=== PATIENT | male | born 1955 | race Caucasian/White ===

== ENCOUNTER 2019-01-16 21:28 | Emergency (ER) | payer MEDICARE ==
[2019-01-16] MEDS ORDERED: NS(*) 0.9% 1000 ML BAG 1,000 ML IV ONE (21:40)
[2019-01-16] MEDS ORDERED: LORA-802 PO (21:46)
[2019-01-16 21:50] LABS: PLATELET COUNT, AUTOMATED 310 K/uL (150-450)
[2019-01-16] MEDS ORDERED: EMS NS 0.9%(*) 1000 ML BAG 1,000 ML IV ONE (21:50)
[2019-01-16 21:56] LABS: INR 0.95
--- NOTE | 2019-01-16 21:57 | EKG ---
FACILITY: [facility] PATIENT NAME: CINDY PERES : [id number] MR: [id number] V: [id number] EXAM DATE: ORDERING PHYSICIAN: MILADY CHILD TECHNOLOGIST: WHITNEY Test Reason : SYNCOPE Blood Pressure : / mmHG Vent. Rate : 072 BPM Atrial Rate : 072 BPM P-R Int : 170 ms QRS Dur : 092 ms QT Int : 392 ms P-R-T Axes : 040 009 052 degrees QTc Int : 429 ms Normal sinus rhythm Normal ECG No previous ECGs available Confirmed by CHANTAL DE LA TORRE ([id number]) on 01/16/2019 10:17:26 PM Referred By: Confirmed By:CHANTAL DE LA TORRE
--- NOTE | 2019-01-16 22:03 | ER Report ---
History and Physical Time Seen By MD: 21:32 Hx. of Stated Complaint: PATIENT WAS FEELING HOT AND CLAMY, WENT TO GET SOME AIR, PASSED OUT ON WAY OUT THE DOOR, PATIENT DENIES, HEAD, NECK OR BACK PAIN. HPI/ROS CHIEF COMPLAINT: Syncope HISTORY OF PRESENT ILLNESS: 63-year-old male presents via EMS after syncopal event. Patient and his are visiting from [place]. They were sitting in house when he began to feel lightheaded. He felt like he needed to get up and go outside for fresh air. Patient does not recall what happened next recalls waking up on the floor. He does recall that he did not have chest pain, headache, shortness of breath prior to the events. He states when he woke up on the floor he felt better. He does not recall exactly what was happening. He believes this was before EMS came. His states that he slumped down in his chair and she and her family member helped lower him to the ground. A daughter who is a medical surgical tech performed 6 checks compressions. According to the daughter, who I interviewed, the patient was gasping for breath as eyes rolling back in his head and he did have a few pulse during the time she was performing chest compressions. After 6 compressions she stated he was breathing better and stopped compressions. Patient reports that he woke up fine and has not had r ecent chest pain or other concerning symptoms. In light duty had been somewhat dehydrated or overexerted yesterday. He has not had any recent medical problems. He does note occasional PVCs that occurred in times of stress. He has not had any recent cardiac evaluation per commercial loan officer. He has not had any recent travel across country and does not have any swelling in his legs. He never had a blood clot He is currently asymptomatic. REVIEW OF SYSTEMS: Constitutional: No fever, no chills. Eyes: no blurred vision ENT: No sore throat. Cardiovascular: No chest pain, no palpitations. Respiratory: No cough, no shortness of breath. Gastrointestinal: No abdominal pain, no vomiting. Genitourinary: no dysuria Musculoskeletal: No back pain. Skin: No rashes. Neurological: No headache. Remainder of the 14 system rev: Yes Allergies: Coded Allergies: kiwi (Verified Allergy, Severe, ITCHY THROAT, 01/16/19) nut - unspecified (Verified Allergy, Severe, ITCHY THROAT, 01/16/19) Penicillins (Verified Allergy, Intermediate, RASH, 01/16/19) Home Meds Reported Medications [Collagen Peptides] No Conflict Check, PO QDAY 01/16/19 Multivitamin (MULTIVITAMINS) 1 Each Capsule, 2 EACH PO QDAY, CAPSULE 01/16/19 [Horny Goat Ebony] No Conflict Check, 2 CAP PO QDAY 01/16/19 Phosphatidyl Serine (PHOSPHATIDYLSERINE) 1 Gm Powder, 1 GM MC QDAY 01/16/19 Resveratrol (RESVERATROL) 50 Mg Capsule, PO QDAY, CAPSULE 01/16/19 [place]-3 Fatty Acids/Fish Oil (OMEGA 3 FISH OIL SOFTGEL) 1 Each Capsule.dr, 2 EACH PO QDAY 01/16/19 Lutein/Zeaxanthin ([facility] LUTEIN 40 MG SOFTGEL) 1 Each Capsule, 1 EACH PO QDAY, CAPSULE 01/16/19 Clindamycin Hcl (CLINDAMYCIN HCL) 300 Mg Capsule, 300 MG PO BEFORE DENTAL WORK, #40 CAPSULE 01/16/19 Loratadine (CLARITIN) 10 Mg Tablet, 10 MG PO QDAY 01/16/19 Reviewed Nurses Notes: Yes Constitutional Vital Sign - Last 24 Hours 01/16/19 01/16/19 01/16/19 01/16/19 21:34 21:43 21:58 22:00 Temp 98.0 Pulse 75 72 80 Resp 12 17 16 B/P (MAP) 143/77 134/77 (96) Pulse Ox 93 96 92 O2 Delivery Room Air 01/16/19 01/16/19 01/16/19 01/16/19 22:28 22:30 22:43 22:58 Pulse 79 77 72 Resp 19 20 24 B/P (MAP) 127/75 (92) Pulse Ox 89 93 94 01/16/19 01/16/19 01/16/19 01/16/19 23:00 23:13 23:18 23:30 Pulse 73 84 Resp 15 19 B/P (MAP) 120/74 (89) 114/76 (89) Pulse Ox 94 90 01/16/19 23:33 Pulse 84 Resp 17 Pulse Ox 90 Intake and Output 01/16/19 01/16/19 01/17/19 15:01 23:01 07:01 Intake Total 1000 ml Balance 1000 ml Physical Exam General Appearance: The patient is alert, has no immediate need for airway protection and no signs of toxicity. Eyes: Pupils equal and round no pallor or injection. ENT, Mouth: Mucous membranes are moist. Respiratory: There are no retractions, lungs are clear to auscultation. Cardiovascular: Regular rate and rhythm. No m/r/g. Rare pvc noted on monitor. No carotid bruit Gastrointestinal: Abdomen is soft and non tender, no masses, bowel sounds normal. Neurological: alert, cranial nerves intact. 5/5 ms throughout. Normal ambulation Skin: Warm and dry, no rashes. Musculoskeletal: Extremities are nontender, nonswollen and have full range of motion. DIFFERENTIAL DIAGNOSIS: After history and physical exam differential diagnosis was considered for syncope including but not limited to acs, pe, vasovagal syncope, arrhythmia, dehydration, and blood loss. Medical Decision Making Data Points Result Diagram: 01/16/19 2100 01/16/19 2100 Laboratory Hematology Test 01/16/19 21:00 01/16/19 22:33 Red Blood Count 4.71 M/uL (4.00-5.60) Mean Corpuscular Volume 93.1 fL (80.0-96.0) Mean Corpuscular Hemoglobin 31.7 pg (26.0-33.0) Mean Corpuscular Hemoglobin Concent 34.1 g/dL (32.0-36.0) Red Cell Distribution Width 12.7 % (11.5-14.5) Mean Platelet Volume 8.2 fL (7.2-11.1) Neutrophils (%) (Auto) 49.9 % (39.4-72.5) Lymphocytes (%) (Auto) 39.1 % (17.6-49.6) Monocytes (%) (Auto) 5.2 % (4.1-12.4) Eosinophils (%) (Auto) 5.2 % (0.4-6.7) Basophils (%) (Auto) 0.6 % (0.3-1.4) Nucleated RBC Relative Count (auto) 0.0 /100WBC Neutrophils # (Auto) 4.1 K/uL (2.0-7.4) Lymphocytes # (Auto) 3.2 K/uL (1.3-3.6) Monocytes # (Auto) 0.4 K/uL (0.3-1.0) Eosinophils # (Auto) 0.4 K/uL (0.0-0.5) Basophils # (Auto) 0.0 K/uL (0.0-0.1) Nucleated RBC Absolute Count (auto) 0.00 K/uL Prothrombin Time 12.6 seconds (12.0-14.4) Prothromb Time International Ratio 0.95 Activated Partial Thromboplast Time 35 seconds (23-35) D-Dimer Quantitative (PE/DVT) 0.44 ug/ml (0-0.50) Sodium Level 140 mmol/L (137-145) Potassium Level 3.4 mmol/L (3.5-5.0) Chloride Level 106 mmol/L (98-107) Carbon Dioxide Level 22 mmol/L (22-30) Blood Urea Nitrogen 20 mg/dl (9-21) Creatinine 1.10 mg/dl (0.66-1.25) Glomerular Filtration Rate Calc > 60.0 Random Glucose 186 mg/dl (75-110) Calcium Level 9.4 mg/dl (8.4-10.2) Total Bilirubin 0.4 mg/dl (0.2-1.3) Aspartate Amino Transf (AST/SGOT) 33 U/L (0-35) Alanine Aminotransferase (ALT/SGPT) 49 U/L (0-56) Alkaline Phosphatase 79 U/L (0-126) Troponin I < 0.012 ng/ml Total Protein 7.9 g/dl (6.3-8.2) Albumin 4.5 g/dl (3.5-5.0) Urine Color Yellow Urine Clarity Clear Urine pH 5.0 pH (4.8-9.5) Urine Specific [place] 1.018 Urine Protein Negative mg/dL (NEGATIVE) Urine Glucose (UA) 50 mg/dL (NEGATIVE) Urine Ketones Negative mg/dL (NEGATIVE) Urine Blood Negative (NEGATIVE) Urine Nitrite Negative (NEGATIVE) Urine Bilirubin Negative (NEGATIVE) Urine Urobilinogen Negative mg/dL (0.2-1.9) Urine Leukocyte Esterase Negative (NEGATIVE) Urine RBC 1 /HPF (0-2/HPF) Urine WBC 1 /HPF (0-5/HPF) Urine Squamous Epithelial Cells None /LPF (</=FEW) Urine Transitional Epithelial Cells Few /LPF (NONE-FEW) Urine Bacteria Negative /HPF (NONE-FEW) Urine Hyaline Casts Many /LPF (NONE-FEW) Urine Mucus Few /HPF (NONE-FEW) Chemistry Test 01/16/19 21:00 01/16/19 22:33 White Blood Count 8.2 k/uL (4.5-11.0) Red Blood Count 4.71 M/uL (4.00-5.60) Hemoglobin 14.9 g/dL (14.0-18.0) Hematocrit 43.8 % (42.0-52.0) Mean Corpuscular Volume 93.1 fL (80.0-96.0) Mean Corpuscular Hemoglobin 31.7 pg (26.0-33.0) Mean Corpuscular Hemoglobin Concent 34.1 g/dL (32.0-36.0) Red Cell Distribution Width 12.7 % (11.5-14.5) Platelet Count 310 K/uL (150-450) Mean Platelet Volume 8.2 fL (7.2-11.1) Neutrophils (%) (Auto) 49.9 % (39.4-72.5) Lymphocytes (%) (Auto) 39.1 % (17.6-49.6) Monocytes (%) (Auto) 5.2 % (4.1-12.4) Eosinophils (%) (Auto) 5.2 % (0.4-6.7) Basophils (%) (Auto) 0.6 % (0.3-1.4) Nucleated RBC Relative Count (auto) 0.0 /100WBC Neutrophils # (Auto) 4.1 K/uL (2.0-7.4) Lymphocytes # (Auto) 3.2 K/uL (1.3-3.6) Monocytes # (Auto) 0.4 K/uL (0.3-1.0) Eosinophils # (Auto) 0.4 K/uL (0.0-0.5) Basophils # (Auto) 0.0 K/uL (0.0-0.1) Nucleated RBC Absolute Count (auto) 0.00 K/uL Prothrombin Time 12.6 seconds (12.0-14.4) Prothromb Time International Ratio 0.95 Activated Partial Thromboplast Time 35 seconds (23-35) D-Dimer Quantitative (PE/DVT) 0.44 ug/ml (0-0.50) Glomerular Filtration Rate Calc > 60.0 Calcium Level 9.4 mg/dl (8.4-10.2) Total Bilirubin 0.4 mg/dl (0.2-1.3) Aspartate Amino Transf (AST/SGOT) 33 U/L (0-35) Alanine Aminotransferase (ALT/SGPT) 49 U/L (0-56) Alkaline Phosphatase 79 U/L (0-126) Troponin I < 0.012 ng/ml Total Protein 7.9 g/dl (6.3-8.2) Albumin 4.5 g/dl (3.5-5.0) Urine Color Yellow Urine Clarity Clear Urine pH 5.0 pH (4.8-9.5) Urine Specific [place] 1.018 Urine Protein Negative mg/dL (NEGATIVE) Urine Glucose (UA) 50 mg/dL (NEGATIVE) Urine Ketones Negative mg/dL (NEGATIVE) Urine Blood Negative (NEGATIVE) Urine Nitrite Negative (NEGATIVE) Urine Bilirubin Negative (NEGATIVE) Urine Urobilinogen Negative mg/dL (0.2-1.9) Urine Leukocyte Esterase Negative (NEGATIVE) Urine RBC 1 /HPF (0-2/HPF) Urine WBC 1 /HPF (0-5/HPF) Urine Squamous Epithelial Cells None /LPF (</=FEW) Urine Transitional Epithelial Cells Few /LPF (NONE-FEW) Urine Bacteria Negative /HPF (NONE-FEW) Urine Hyaline Casts Many /LPF (NONE-FEW) Urine Mucus Few /HPF (NONE-FEW) Coagulation Test 01/16/19 21:00 Prothrombin Time 12.6 seconds Prothromb Time International Ratio 0.95 Activated Partial Thromboplast Time 35 seconds D-Dimer Quantitative (PE/DVT) 0.44 ug/ml Urinalysis Test 01/16/19 22:33 Urine Color Yellow Urine Clarity Clear Urine pH 5.0 pH (4.8-9.5) Urine Specific [place] 1.018 Urine Protein Negative mg/dL (NEGATIVE) Urine Glucose (UA) 50 mg/dL (NEGATIVE) Urine Ketones Negative mg/dL (NEGATIVE) Urine Blood Negative (NEGATIVE) Urine Nitrite Negative (NEGATIVE) Urine Bilirubin Negative (NEGATIVE) Urine Urobilinogen Negative mg/dL (0.2-1.9) Urine Leukocyte Esterase Negative (NEGATIVE) Urine RBC 1 /HPF (0-2/HPF) Urine WBC 1 /HPF (0-5/HPF) Urine Squamous Epithelial Cells None /LPF (</=FEW) Urine Transitional Epithelial Cells Few /LPF (NONE-FEW) Urine Bacteria Negative /HPF (NONE-FEW) Urine Hyaline Casts Many /LPF (NONE-FEW) Urine Mucus Few /HPF (NONE-FEW) EKG/Imaging EKG Interpretation 12 lead EKG: Rhythm: normal sinus rhythm [place]: normal QRS: normal ST segments: normal normal slag dumper Interpretation: Normal Sinus Rhythm ED Course/Re-evaluation ED Course 63 m presents with syncope. He had prodrome and noconcerning symptoms prior to or afterwards. While a family member gave 6 chest compressions, she did specifically admit that he was breathing and had thready pulse when doing compressions. He has occ pvc's in ed and has had these in past. I considered arrhythmia/acs, but pt does not have sgs of these with monitoring. No other high risk features; he has -[address] albanian ct score; v low risk mortality. Reasonable for d/c with SRp's. Decision to Disposition Date: Jan 16, 2019 Decision to Disposition Time: 23:06 Depart Departure Latest Vital Signs Vital Signs Date Time Temp Pulse Resp B/P (MAP) Pulse Ox O2 Delivery O2 Flow Rate FiO2 01/16/19 23:33 84 17 90 01/16/19 23:30 114/76 (89) 01/16/19 21:34 98.0 Room Air Impression: Primary Impression: Syncope Condition: Improved Disposition: HOME OR SELF-CARE Patient Instructions: Syncope (ED) Additional Instructions: As we discussed, I do not find a concerning reason for your syncope, but please return immediately if you have any further events, chest pain, difficulty breathing, or any concerns. Please follow up with your primary doctor next week for re-evaluation and to have your blood sugar rechecked to screen for diabetes. Your blood sugar here was 1856 with 50mg/dL of glucose in your urine. Problem Qualifiers Primary Impression: Syncope Syncope type: unspecified Qualified Codes: R55 - Syncope and collapse MILADY CHILD MD Jan 16, 2019 22:03
[2019-01-16] MEDS ORDERED: COLLAGEN PEPTIDES PO (22:10)
[2019-01-16] MEDS ORDERED: HORNY GOAT WEED PO (22:10)
[2019-01-16] MEDS ORDERED: OMEG-36 PO (22:10)
[2019-01-16] MEDS ORDERED: MULT1CAP59 PO (22:10)
[2019-01-16] MEDS ORDERED: CLIN300C99 PO (22:10)
[2019-01-16] MEDS ORDERED: LUTE1CAP3 PO (22:10)
[2019-01-16] MEDS ORDERED: PHOS1POW MC (22:10)
[2019-01-16] MEDS ORDERED: RESV50CA PO (22:10)
--- NOTE | 2019-01-16 22:35 | RADIOLOGY IMAGING REPORT ---
FACILITY: [facility] [place] PATIENT NAME: Pietro Yuan : 1955 MR: [id number] V: [id number] EXAM DATE: ORDERING PHYSICIAN: MILADY CHILD TECHNOLOGIST: Location: [facility] [place] Patient: Pietro Yuan : 1955 Visit/Account:[id number] Date of Sevice: 01/16/2019 CHEST PA LAT HISTORY: Syncope. COMPARISON: None. TECHNIQUE: PA and lateral views of the chest. FINDINGS: PULMONARY/PLEURA: Lungs are clear. There is no pneumothorax or pleural effusion. CARDIOMEDIASTINAL: Cardiac and mediastinal silhouettes are within normal limits. There is mild aortic calcification. BONES/SOFT TISSUES: No acute osseous abnormality. There is mild degenerative change of the spine. The re is a slight rightward curvature of the mid thoracic spine. There is slight leftward curvature of t he thoracolumbar spine. The visible abdomen is normal. IMPRESSION: 1. No acute cardiopulmonary process. Report Dictated By: Clary Azar at 01/16/2019 10:28 PM Report E-Signed By: Clary Azar at 01/16/2019 10:30 PM WSN:[id number]
[2019-01-16 23:30] VITALS: BP 114/76
== END 2019-01-16 23:46 | disposition home or self-care (01) ==
LOC: ER 21:40
DX: R55 Syncope and collapse (principal)
CPT/HCPCS: 71046; 81001; 82040; 82247; 82310; 82374; 82435; 82565; 82947; 84075; 84132; 84155; 84295; 84450; 84460; 84484; 84520; 85025; 85379; 85610; 85730; 93005; 96360; 96361; 99284

== ENCOUNTER → 2019-01-16 | Outpatient (CLI) | payer MEDICARE ==
[~2019-01-16] MED LIST: CLIN300C99 PO; COLLAGEN PEPTIDES PO; HORNY GOAT WEED PO; LORA-802 PO; LUTE1CAP3 PO; MULT1CAP59 PO; OMEG-36 PO; PHOS1POW MC; RESV50CA PO
== END ==
LOC: AMB 20:23
PROVIDERS: ATTEND Nurse Practitioner
DX: R55 Syncope and collapse (principal)
CPT/HCPCS: A0425; A0427